=== PATIENT | female | born 1970 | race Caucasian/White ===

== ENCOUNTER → 2016-07-11 | Day surgery (SDC) | payer OTHER ==
--- NOTE | 2016-08-04 07:21 | HP ---
ADMIT: 07/11/2016 RM/LOC: [facility] MR#: [id number] [address] [address] SUSANNE SCHMID [address] [place] [id number] Pre-OP History and Physical SEX: F AGE: 46 : 1970 DATE OF SERVICE: HISTORY OF PRESENT ILLNESS: The patient is a 46-year-old female who presented to the clinic with complaints of pelvic pain. The patient states that she has had pelvic pain for years, which she describes as stabbing pain and fullness in the lower abdomen. The patient also complains of bloating. The patient does have a history of endometriosis. She has had a previous hysterectomy, but ovaries were not removed at the time of surgery. She now desires to have her ovaries removed secondary to pelvic pain. The patient also does have a history of ovarian cyst, but recent ultrasound hemorrhage showed multiple follicles, but no large cyst of the ovaries. PAST MEDICAL HISTORY: 1. Endometriosis. 2. Atopic dermatitis. 3. Bipolar disorder. 4. Depression. 5. Headache. 6. Irritable bowel syndrome. 7. Hypertension. PAST SURGICAL HISTORY: Laparoscopic-assisted hysterectomy. CURRENT MEDICATIONS: 1. Abilify 5 mg daily. 2. Acyclovir 800 mg twice daily. 3. Ambien 10 mg at bedtime. 4. Amitriptyline 25 mg at bedtime. 5. Benzoyl peroxide gel and ClindaMax gel daily. 6. Cranberry tablets daily. 7. Dicyclomine 20 mg four times daily. 8. Lortab as needed. 9. Keflex 500 mg every 6 hours. 10.Lomotil 2.5 mg daily. 11.Metoprolol 25 mg daily. 12.Minocycline 100 mg daily. 13.Omeprazole 20 mg daily. 14.Ondansetron 4 mg four times daily as needed. 15.Tramadol 50 mg three times daily as needed. 16.Tretinoin externally. FAMILY HISTORY: Patient is adopted. SOCIAL HISTORY: The patient does smokes 1-1/2 pack of cigarettes per day. She uses alcohol occasionally socially and does not use drug. REVIEW OF SYSTEMS: GENERAL: The patient is feeling well. She denies any unexpected weight changes, fever, chills. CARDIOVASCULAR: No chest pain, palpitations, or dyspnea with exertion. ADMIT: 07/11/2016 RM/LOC: [facility] MR#: [id number] [address] [address] SUSANNE SCHMID [address] [place] [address] Pre-OP History and Physical SEX: F AGE: 46 : 1970 RESPIRATORY: No cough, wheeze, or shortness of breath. GASTROINTESTINAL: Patient does have intermittent diarrhea, but states that irritable bowel syndrome is currently controlled. She does complain of abdominal pain and bloating. No current nausea or vomiting. FEMALE GENITOURINARY: Pelvic pain as described above. She denies urinary complaints or abnormal vaginal discharge. MUSCULOSKELETAL: The patient does have chronic pain in joints and muscles. PHYSICAL EXAMINATION: VITAL SIGNS: Weight 131 pounds, blood pressure 120/80, height 61 inches, BMI 23. GENERAL: Patient is alert and oriented, no acute distress. HEART: Regular rate and rhythm without murmurs, gallops, or rubs. LUNGS: Clear to auscultation bilaterally. ABDOMEN: Soft, nontender, nondistended with positive bowel sounds. EXTREMITIES: No edema. No calf tenderness. FEMALE GENITOURINARY: Normal- appearing external female genitalia. Normal Bartholin's, Brilliant's, and urethral glands. Vagina appears estrogenized without lesions. Bimanual examination reveals adnexa bilaterally to be tender. No masses are appreciated. ASSESSMENT: A 46-year-old female with pelvic pain and history of endometriosis. PLAN: Plan to proceed with laparoscopic bilateral salpingo-oophorectomy due to endometriosis. Risks, benefits, and alternatives of surgery including, but not limited to the risk of bleeding, possibly requiring blood transfusion, the risk of infection, the risk of injury to bowel or bladder have been discussed with the patient, and she wishes to proceed. The patient also understands the risks from scar tissue or other complications, she may need an open incision to complete the procedure. The patient understands these risks and wished to proceed. Jaleesa Abdalla MD/ giles JOB #: [id number] CC: Jaleesa Abdalla, Attending Physician Marcellus Dillard, Family Physician
--- NOTE | 2016-09-23 09:18 | OR ---
ADMIT: 07/11/2016 RM/LOC: [facility] MR#: [id number] ACC#: [id number] [address] SUSANNE SCHMID [address] [place] [id number] Operative/Delivery Room Report SEX: F AGE: 46 : 1970 SURGERY DATE: 07/11/2016 SURGEON: Jaleesa Abdalla MD PROCEDURE: Laparoscopy with bilateral salpingo-oophorectomy and lysis of adhesions. GUEST RELATIONS RECEPTIONIST: Jen Hodge MD PREOPERATIVE DIAGNOSES: 1. Pelvic pain. 2. Endometriosis. POSTOPERATIVE DIAGNOSES: 1. Pelvic pain. 2. Endometriosis. 3. Pelvic adhesions. FINDINGS AT TIME OF SURGERY: 1. Normal right ovary and tube with simple cyst. 2. Left ovary into with extensive adhesions to the bowel. 3. Endometriosis. 4. Pelvic adhesions. ESTIMATED BLOOD LOSS: 50 mL. COMPLICATIONS: None. INDICATIONS FOR PROCEDURE: The patient is a 46-year-old female with longstanding history of pelvic pain. The patient had a hysterectomy performed and endometriosis was noted at that time. The patient's ovaries were left in place at that time. The patient continued to complain of pelvic pain, and so decision was made to proceed with bilateral salpingo-oophorectomy. The risks, benefits, and alternatives of the surgery including, but not limited to risk of bleeding, possibly requiring blood transfusion, risk of infection, the risk of injury to bowel or bladder were discussed with the patient and she wished to proceed. DESCRIPTION OF PROCEDURE: The patient was taken to the operating room where general anesthesia was obtained without difficulty. The patient was placed in dorsal lithotomy position in [facility], and prepped and draped in usual sterile fashion. A sponge stick was placed in the patient's vagina. A 5-mm infraumbilical incision was made with the scalpel after local infiltration of 0.25% Marcaine. The Veress needle was inserted into this incision and the patient's abdomen was insufflated to a patient pressure of 15 mmHg. Good gas flow and low patient opening pressure were noted with insufflation. Two additional ports were placed in the left and right lower quadrants under direct visualization after local infiltration of 0.25% Marcaine. At this point, examination of the pelvis was performed. There were ADMIT: 07/11/2016 RM/LOC: [facility] MR#: [id number] [address] [address] SUSANNE SCHMID [address] [place] [address] Operative/Delivery Room Report SEX: F AGE: 46 : 1970 noted to be extensive pelvic adhesions from the omentum to the vaginal cuff as well as the omentum and bowel to the left tube and ovary. There was noted to be endometriosis noted as well in the left aspect of the pelvis. Attention was first turned to the right tube and ovary. The right tube and ovary were identified and the IP ligament was identified. This was noted be away from the ureter on the patient's right. The infundibulopelvic ligament was then coagulated and transected removing the right tube and ovary without difficulty. This was placed in an EndoCatch bag and removed through the left incision. Attention was then turned to the patient's left side. The adhesions on the patient's left side were taken down with a combination of blunt and sharp dissection with the Endo Eliz. The ureter was noted to be away from the IP ligament. The adhesions to the bowel were also taken down with combination of blunt and sharp dissection with Endo Eliz. When the infundibulopelvic ligament had been isolated, this was coagulated and transected using the Thunderbeat device and placed in the EndoCatch bag and removed as well. At this point, the remaining adhesions of the omentum to the vaginal cuff were taken down as much as possible. There was noted to be an area of endometriosis on the patient's left side which was rather close to the left ureter and so was left in place. The pelvis otherwise appeared free of endometriosis lesions. At the end of the procedure, the adhesions had been taken down nicely and both pedicles appeared hemostatic. The fascia was closed with a stitch of 0 Vicryl. All other trocars were removed from the patient's abdomen. The skin incisions were closed with subcuticular 3-0 Vicryl. The patient tolerated the procedure well. Sponge stick was removed from the vagina. The patient went to recovery room in stable condition. Jaleesa Abdalla MD/ giles JOB #: [id number] CC: Jaleesa Abdalla, Attending Physician Marcellus Dillard, Family Physician
== END | disposition home or self-care (01) ==
LOC: SSS 05:34
PROC: 0UT74ZZ Resection of Bilateral Fallopian Tubes, Percutaneous Endoscopic Approach (ICD-10-PCS; principal; 2016-07-11)
PROC: 0UT24ZZ Resection of Bilateral Ovaries, Percutaneous Endoscopic Approach (ICD-10-PCS; principal; 2016-07-11)
DX: N80.3 Endometriosis of pelvic peritoneum (principal); N73.6 Female pelvic peritoneal adhesions (postinfective); N83.11 Corpus luteum cyst of right ovary; N83.02 Follicular cyst of left ovary; I10 Essential (primary) hypertension; F31.9 Bipolar disorder, unspecified; F17.210 Nicotine dependence, cigarettes, uncomplicated; Z79.899 Other long term (current) drug therapy; Z90.710 Acquired absence of both cervix and uterus